=== PATIENT | female | born 1955 | race Two or more races ===

== ENCOUNTER → 2023-01-19 | Day surgery (SDC) | payer OTHER ==
[~2023-01-19] VITALS: Ht 149.9 cm; Wt 81.6 kg
[~2023-01-19] MED LIST: ACCU-CHEK COMFORT CURVE STRIP VI ONE; ALEN70TA74 PO; AMLO1TAB23 PO; ATOR10TA52 PO; CHOL20007 OR; HYDROmorphone HCL 2 MG/ML VL/or syr IV PRN; INSU100I67 SC; ISOS10TA2 PO; LEVO75TA6 PO; LOSA100T58 PO; METF-490 PO; METOCLOPRAMIDE HCL 5MG/ml INJ 2ml VIAL IV PRN; MIDAZOLAM HCL 2MG/2ML 2ml VIAL (1mg/ml) ONE; MORPHINE SULFATE INJ 2 MG/ml SYRG IV PRN; NALOXONE HCL 1MG/ML 2ML SYRINGE ONE; ONDANSETRON HCL 4 MG/2 ML VIAL ONE; PROPOFOL 10 MG/ML 20 ML IV ONE; TOPI50TA53 PO; fentaNYL CITRATE 100 MCG/2 ML VL ONE
[2023-01-19 08:19] VITALS: TEMP 97.7
[2023-01-19 09:51] VITALS: O2SAT 94
[2023-01-19 10:45] VITALS: BP 124/73; PULSE 70; RESP 13; O2SAT 95
== END | disposition home or self-care (01) ==
LOC: GI 07:24
PROVIDERS: ATTEND Internal Medicine Gastroenterology
DX: Z12.11 Encounter for screening for malignant neoplasm of colon (principal); R13.10 Dysphagia, unspecified; K57.30 Diverticulosis of large intestine without perforation or abscess without bleeding; K64.8 Other hemorrhoids; K64.4 Residual hemorrhoidal skin tags; K29.50 Unspecified chronic gastritis without bleeding; E11.9 Type 2 diabetes mellitus without complications
CPT/HCPCS: 43239; 43450; 82962; G0121; J2250; J2310; J2405; J2704; J3010; J7030

== ENCOUNTER 2025-02-03 06:12 | Inpatient (IN) | payer OTHER ==
[2025-02-03] VITALS (9 sets, daily range): BP systolic 124–144; BP diastolic 74–78; PULSE 73–93; RESP 12–18; TEMP 98.1–98.8; O2SAT 96–100
[~2025-02-03] VITALS: Ht 149.9 cm; Wt 79.6 kg
[~2025-02-03 06:12] MED LIST changes: -ACCU-CHEK COMFORT CURVE STRIP VI ONE; +ASPI81CH59 PO; +HYDR-4902 PO; -HYDROmorphone HCL 2 MG/ML VL/or syr IV PRN; +INSLANTI SC; -INSU100I67 SC; +LOSA-535 PO; -LOSA100T58 PO; -METOCLOPRAMIDE HCL 5MG/ml INJ 2ml VIAL IV PRN; -MIDAZOLAM HCL 2MG/2ML 2ml VIAL (1mg/ml) ONE; -MORPHINE SULFATE INJ 2 MG/ml SYRG IV PRN; -NALOXONE HCL 1MG/ML 2ML SYRINGE ONE; -ONDANSETRON HCL 4 MG/2 ML VIAL ONE; -PROPOFOL 10 MG/ML 20 ML IV ONE; +SEMA2INJ3 SC; -fentaNYL CITRATE 100 MCG/2 ML VL ONE
[2025-02-03] MEDS ORDERED: MORPHINE SULF PF 5 MG/10 ML VIAL ONE ×2 (07:00→07:22)
[2025-02-03] MEDS: BUPIVACAINE 0.25% INJ 50ML VIAL ONE ×2 (07:02→10:20)
[2025-02-03] MEDS: DEXTROSE 50% SYRINGE 50 ML IV ONE (07:17)
[2025-02-03] MEDS ORDERED: fentaNYL CITRATE 100 MCG/2 ML VL ONE (07:29)
[2025-02-03] MEDS ORDERED: MIDAZOLAM HCL 2MG/2ML 2ml VIAL (1mg/ml) ONE (07:29)
[2025-02-03] MEDS: DEXTROSE (50%) 50ML SYRG IV PRN (07:30)
[2025-02-03] MEDS ORDERED: NITROGLYCERIN 0.4 MG SL TAB SL PRN (07:30)
[2025-02-03] MEDS ORDERED: MORPHINE SULFATE INJ 2 MG/ml SYRG IV PRN (07:30)
[2025-02-03] MEDS: LACTATED RINGER'S 1,000 ML IV SCH (07:30)
[2025-02-03] MEDS ORDERED: ONDANSETRON HCL 4 MG/2 ML VIAL ONE (07:31)
[2025-02-03] MEDS ORDERED: BUPIVACAINE/DEXTROSE MPF 0.75% 2 ML AMP IT ONE (07:31)
[2025-02-03] MEDS ORDERED: METOCLOPRAMIDE HCL 5MG/ml INJ 2ml VIAL ONE (07:31)
[2025-02-03] MEDS ORDERED: PHENYLEPHRINE HCL 10 MG/ML VL ONE (07:32)
[2025-02-03] MEDS ORDERED: PROPOFOL 10 MG/ML 20 ML IV ONE (07:52)
[2025-02-03] MEDS ORDERED: LIDOCAINE 2% (LOCAL ANESTH.) PF 5ml SDV ONE (07:52)
[2025-02-03] MEDS: KETOROLAC TROMETH 30 MG/ML 1ML VIAL ONE (08:05)
[2025-02-03] MEDS ORDERED: LIDOCAINE W/ EPINEPHRINE 1% 20ML VIAL ONE (08:15)
[2025-02-03] MEDS: VANCOMYCIN HCL 1000 MG VL ONE (08:36)
[2025-02-03] MEDS ORDERED: hydrALAZINE HCL 20 MG/ML VL IV PRN (09:30)
[2025-02-03] MEDS ORDERED: ONDANSETRON HCL 4 MG/2 ML VIAL IV PRN (09:30)
[2025-02-03] MEDS: DOCUSATE SOD 100 MG CAP PO SCH (10:00)
[2025-02-03] MEDS: ceFAZolin 2 GM/D5W50ml 50 ML IV ONE (10:16)
[2025-02-03] MEDS: CEFEPIME 1GM/50ML 50 ML IV ONE (10:19)
[2025-02-03] MEDS: TRANEXAMIC ACID 20 ML ONE (10:19)
[2025-02-03] MEDS: BUPIVACAINE HCL 0 ML ONE (10:19)
--- NOTE | 2025-02-03 10:30 | DVHOP2 ---
Discharge Orders Discharge Orders DISCHARGE WHEN CRITERIA MET DISCHARGE WHEN CRITERIA MET. Operative Rep- Outpatient Operative Report PRE-OP DIAGNOSIS: Left knee DJD PRE-OP PAIN LEVEL (0-10): 9 POST-OP DIAGNOSIS: same [place] protocol followed: Yes ESTIMATED BLOOD LOSS: less then 50 cc PROCEDURE: Left TKA Computer navigation of the TKA SURGEON/BLOCK AND CASE MAKER: Bart Churchill NP ANESTHESIA: SPinal ANESTHESIOLOGIST: Mandeep INFORMED CONSENT: Informed Consent: Discussed all inherent risks, complications, and alternatives treatments with the patient. Patient has agreed to proceed with the procedure. I have reviewed all pre-operative assessments including Labs, EKGs, and radiographic images that has been performed. Patient is an appropriate candidate for the outpatient surgical center procedure. Informed Consent: Discussed all inherent risks, complications, and alternatives treatments with the patient. Patient has agreed to proceed with the procedure. I have reviewed all pre-operative assessments including Labs, EKGs, and radiographic images that has been performed. Patient is an appropriate candidate for the outpatient surgical center procedure. The patient is a 69-year-old female who has ongoing pain in the left knee. The patient is educated on the risks and benefits of surgical and nonsurgical treatment of the left lower extremity the patient understands the risks associated with the left total knee arthroplasty. The patient is a 69-year-old female who has failed conservative measures physical therapy activity modifications bracing and anti-inflammatories based on the failure of all the nonoperative treatments the patient was educated on the risks and benefits of surgical and nonsurgical treatment left lower extremity the patient agrees to have a left total knee arthroplasty the patient understands the risks associated with the left total knee arthroplasty The patient is seen in the preoperative holding area of the left lower extremity was marked the patient was brought to operative suite general anesthesia was then induced and also to hospital protocol the left lower extremity was prepped and draped in the standard fashion Ancef was given for infection prophylaxis TXA was given for bleeding prophylaxis once it was then completed the left lower extremity was then prepped and draped in the standard fashion once I was then done incision was made through skin subcu tissue down the VMO quad junction of the medial parapatellar arthrotomy was then created once I was then completed in the appropriate manner with a medial parapatellar arthrotomy of the small medial release of the deep MCL was then completed once I was then done the fat pad was then carefully removed on the anterior horn of the medial and lateral meniscus once I was then completed attention and strengthening of the computer navigation with a posterior slope of 4 with a medial malleolar lateral malleolus using kit hematocrit mechanical axis using computer navigation and 4 degree slope cut was then completed in the appropriate manner once it was then cut in the appropriate manner attention was then turned to the proximal tibia with a resection 2 mm off the medial side once I was then completed attention was then turned to the distal femur was using flexion extension internal external rotation of the distal femoral cut with a through 3 of flexion and neutral mechanical axis in the appropriate manner. Once I was then completed in the appropriate manner the distal femoral sizing block was then used the 4 1 cutting block was then used once I was then used the tibial base plate was then prepped and along the medial 1/3 of the tibial tubercle was then rotation was then marked of the femoral component was punched and killed in the appropriate manner once I was then done on the 11 mm spacer block was checked in flexion and extension once it was then checked with the I was balanced in flexion extension internal external rotation once I was then completed in the appropriate manner on the tibial base plate was then punched and killed followed by the femoral component which was punched ocular patellar neurectomy was then also completed in the appropriate manner once it was then done on the cement list tibial base plate was then cemented in the placed into position a femoral component was placed in the position of the 11 mm poly was placed in the position of the patellar tracking was then checked that there was a is then on full range of motion with no gross instability once I was then completed on the knee was irrigated copiously with saline and then with Betadine vancomycin powder 2. Five Ethibond 90 of flexion with a 1. Stratafix followed by 0 Vicryl followed by 2-0 Monocryl followed by a bridge dressing. The patient will follow up in approximately 2 weeks' time PT OT out of bed daily follow up in 2 weeks' time BART HUYNH MD Feb 03, 2025 10:30
--- NOTE | 2025-02-03 10:39 | DVH ---
EXAM: XY L KNEE 3V XRAY CLINICAL INDICATION: S/P SURGERY TECHNIQUE: XY L KNEE 3V XRAY Comparison: None FINDINGS/IMPRESSION: Status post left total knee arthroplasty.
[2025-02-03] MEDS: HYDROmorphone HCL 2 MG/ML VL/or syr IV PRN ×2 (11:05→20:38)
[2025-02-03] MEDS: ceFAZolin 1GM/50ML 50 ML IV SCH (11:15)
[2025-02-03] MEDS: ACCU-CHEK COMFORT CURVE STRIP VI SCH (11:30)
[2025-02-03] MEDS: ACETAMINOPHEN IV 1000 MG/100ML (10MG/ML) IV ONE (11:33)
[2025-02-03] MEDS: diphenhdrAMINE HCL 50 MG/1 ML VL IV ONE (12:45)
[2025-02-03] MEDS: SODIUM CHLOR 0.9% PF (SALINE LOCK) 10ML VIAL/SYR IV SCH (14:00)
[2025-02-03] MEDS: InsuLIN REG 1unit/0.01ml Soln (100units/ml) SC SCH ×2 (15:15→21:35)
[2025-02-03] MEDS: HYDROmorphone HCL 2 MG/ML VL/or syr ONE (15:50)
[2025-02-03] MEDS: OXYCODONE W/ ACETAMINOPHEN 5/325MG TABLET PO PRN (17:44)
[2025-02-03] MEDS: ATORVASTATIN 20 MG TAB PO SCH (21:27)
[2025-02-03] MEDS: OXYBUTYNIN CHL 5 MG TAB PO ONE (21:41)
[2025-02-04] VITALS (8 sets, daily range): BP systolic 122–174; BP diastolic 76–102; PULSE 63–83; RESP 17–20; TEMP 97.7–98.2; O2SAT 92–98
[2025-02-04] MEDS: ONDANSETRON HCL 4 MG/2 ML VIAL IV PRN (03:07)
[2025-02-04] MEDS: LEVOTHYROXINE SODIUM 25 MCG TAB PO SCH (06:42)
[2025-02-04 07:13] LABS: Hematocrit 37.1 % (36.0-46.0); Hemoglobin 12.2 g/dL (12.2-16.2); Mean Corpuscular Hemoglobin 27.9 pg (28.0-32.0); Mean Corpuscular Volume 84.7 fL (80.0-100.0); Nucleated Red Blood Cells % 0.0 %
[2025-02-04 07:24] LABS: Albumin 3.8 g/dL (3.2-4.8); Alkaline Phosphatase 77 U/L (46-116); Anion Gap 9 (5-15); BUN/Creatinine Ratio 12.5 (10.0-20.0); Blood Urea Nitrogen 12 mg/dL (9-23); Calcium 9.7 mg/dL (8.7-10.4); Carbon Dioxide 26 mmol/L (20-31); Chloride 105 mmol/L (98-107); Sodium 140 mmol/L (136-145); Total Protein 6.4 g/dL (5.7-8.2)
[2025-02-04 07:25] LABS: Bilirubin, Total 0.6 mg/dL (0.2-1.0)
[2025-02-04 07:27] LABS: Alanine Aminotransferase < 9 U/L (7-40); Glucose 151 mg/dL (74-106); Potassium 5.5 mmol/L (3.5-5.1)
[2025-02-04] MEDS: ACETAMINOPHEN 325 MG TAB PO PRN (11:50)
[2025-02-04 14:05] LABS: Hematocrit 38.7 % (36.0-46.0); Hemoglobin 12.9 g/dL (12.2-16.2)
[2025-02-04] MEDS: FAMOTIDINE (10MG/ML) 2ML VL IV SCH (20:55)
[2025-02-05 01:00] VITALS: BP 158/83; PULSE 75; RESP 18; TEMP 98.2; O2SAT 97
[2025-02-05 05:00] VITALS: BP 162/84; PULSE 77; RESP 18; TEMP 98.2; O2SAT 98
[2025-02-05 06:28] LABS: Hematocrit 38.4 % (36.0-46.0); Hemoglobin 12.9 g/dL (12.2-16.2)
[2025-02-05 08:00] VITALS: PULSE 81
--- NOTE | 2025-02-05 08:09 | DVHDS2 ---
Discharge Summary Date of Admission Feb 03, 2025 at 07:20 Date of Discharge: Feb 05, 2025 Admitting Diagnosis left knee osteoarthritis Wounds: left knee dressing to remain in place until first postop visit Labs/Diagnostic Data: Laboratory Results Test 02/05/25 06:39 02/05/25 05:16 02/04/25 05:39 POC Glucose 128 mg/dl (70-106) Hemoglobin 12.9 g/dL (12.2-16.2) Hematocrit 38.4 % (36.0-46.0) White Blood Count 12.0 10^3/uL (4.4-10.8) Red Blood Count 4.39 10^6/uL (4.0-5.20) Mean Corpuscular Volume 84.7 fL (80.0-100.0) Mean Corpuscular Hemoglobin 27.9 pg (28.0-32.0) Mean Corpuscular Hemoglobin Concent 32.9 g/dL (32.0-36.0) Red Cell Distribution Width 14.2 % (11.8-14.3) Platelet Count 290 10^3/uL (140-450) Mean Platelet Volume 9.5 fL (6.9-10.8) Neutrophils (%) (Auto) 76.5 % (37.0-80.0) Lymphocytes (%) (Auto) 14.0 % (10.0-50.0) Monocytes (%) (Auto) 9.0 % (0.0-12.0) Eosinophils (%) (Auto) 0.2 % (0.0-7.0) Basophils (%) (Auto) 0.3 % (0.0-2.0) Neutrophils # (Auto) 9.1 10 ^3/uL (1.6-8.6) Lymphocytes # (Auto) 1.7 10 ^3/uL (0.4-5.4) Monocytes # (Auto) 1.1 10 ^3/uL (0-1.3) Eosinophils # (Auto) 0 10 ^3/uL (0-0.8) Basophils # (Auto) 0 10 ^3/uL (0-0.2) Nucleated Red Blood Cells 0.0 % Sodium Level 140 mmol/L (136-145) Potassium Level 5.5 mmol/L (3.5-5.1) Chloride Level 105 mmol/L (98-107) Carbon Dioxide Level 26 mmol/L (20-31) Anion Gap 9 (5-15) Blood Urea Nitrogen 12 mg/dL (9-23) Creatinine 0.96 mg/dL (0.550-1.02) Glomerular Filtration Rate Calc 64 mL/min (>90) BUN/Creatinine Ratio 12.5 (10.0-20.0) Serum Glucose 151 mg/dL (74-106) Calcium Level 9.7 mg/dL (8.7-10.4) Total Bilirubin 0.6 mg/dL (0.2-1.0) Aspartate Amino Transferase (AST) 14 U/L (13-40) Alanine Aminotransferase (ALT) < 9 U/L (7-40) Alkaline Phosphatase 77 U/L (46-116) Total Protein 6.4 g/dL (5.7-8.2) Albumin 3.8 g/dL (3.2-4.8) Other Laboratory Tests 02/05/25 05:16 02/04/25 05:39 Brief Hx & Hospital Course: s/p left total knee arthroplasty Condition at Discharge: Good Final Diagnosis/Problems List left knee osteoarthritis Discharge Disposition[facility] Discharge Instruct/Medications Diet comment: may advance diet tolerated Activity: No Restrictions, As Tolerated Activity comment: continue with CPM as ordered for 6 hours a day, increase flexion by 5 degrees daily. Follow Up/Referral: follow up in 2 weeks on 02/19/2025 at 9:30 Medications: prescriptins for percocet, aspirin sent to preferred pharmacy for use after SNF discharge Scheduled Alendronate Sodium (Alendronate Sodium), Unknown Dose PO Q7D, (Reported) Amlodipine Besylate (Amlodipine Besylate), 10 MG PO DAILY, (Reported) Aspirin (Aspirin Low Dose), 1 TAB PO DAILY, (Reported) Atorvastatin Calcium (Atorvastatin Calcium), 10 MG PO DAILY, (Reported) Isosorbide Dinitrate (Isosorbide Dinitrate), Unknown Dose PO DAILY, (Reported) Levothyroxine Sodium (Levothyroxine Sodium), 75 MCG PO DAILY, (Reported) Losartan Potassium (Losartan Potassium), Unknown Dose PO DAILY, (Reported) Miscellaneous Medications Cholecalciferol (Vitamin D3), Unknown Dose OR, (Reported) Hydrocodone-Acetaminophen (Hydrocodone Bitartrate/AC 5-325 mg), 1 TAB PO, (Reported) Insulin Glargine (Lantus), 72 UNIT SC, (Reported) Metformin Hydrochloride (Metformin Hcl Er), 1,000 MG PO, (Reported) Semaglutide (Ozempic), 2 MG SC, (Reported) Topiramate (Topiramate), Unknown Dose PO, (Reported) Discharge Statement: "Patient was advised to return to the ER or call 911 if any headaches, dizziness, shortness of breath, chest pain, abdominal pain, bleeding, fevers, or worsening of medical condition. Patient was counseled about treatment plan, medications, possible side effects, patientverbalized understanding. All questions were answered to the best of my ability. This discharge took greater then 30 minutes in planning, reviewing documentation, counseling the patient, and discussing with other team members." ASSESSMENT ASSESSMENT Assessment MILES ROMO NP Feb 05, 2025 08:09
[2025-02-05 09:00] VITALS: BP 154/85; PULSE 79; RESP 20; TEMP 100.2; O2SAT 97
--- NOTE | 2025-02-05 09:17 | DVHINCON2 ---
Date of service: Feb 04, 2025 Reason for Consultation Medical Management History of Present Illness Patient presents for hip replacement. I have been asked to consult for medical management. Family History: Cardiovascular disease G8 MOTHER G8 FATHER Allergies: Coded Allergies: Ciprofloxacin (Unverified Allergy, Intermediate, rash, pruritus, 01/18/23) Hydrocodone (Unverified Allergy, Intermediate, rash, pruritus, 01/18/23) Morphine (Unverified Allergy, Intermediate, rash, pruritus, 01/18/23) Home Meds Reported Medications Semaglutide (Ozempic) 2 Mg/3 Ml Inj, 2 MG SC, INJ 01/31/25 Hydrocodone-Acetaminophen (Hydrocodone Bitartrate/AC 5-325 mg) 1 Tab Tab, 1 TAB PO, TAB 01/31/25 Insulin Glargine (Lantus) 100 Unit/Ml Inj, 72 UNIT SC, INJ 01/31/25 Aspirin (Aspirin Low Dose) 81 Mg Chw, 1 TAB PO DAILY, #90 TAB 3 Refills 01/31/25 Alendronate Sodium (Alendronate Sodium) Unknown Strength Tab, PO Q7D, TAB 01/18/23 Cholecalciferol (VITAMIN D3) Unknown Strength Tab, OR, TAB 01/18/23 Topiramate (Topiramate) Unknown Strength Tab, PO, TAB 01/18/23 Isosorbide Dinitrate (Isosorbide Dinitrate) Unknown Strength Tab, PO DAILY, TAB 01/18/23 Losartan Potassium (Losartan Potassium) Unknown Strength Tab, PO DAILY, TAB 01/18/23 Levothyroxine Sodium (Levothyroxine Sodium) 75 Mcg Tab, 75 MCG PO DAILY, TAB 01/18/23 Amlodipine Besylate (Amlodipine Besylate) 10 Mg Tab, 10 MG PO DAILY, TAB 01/18/23 Atorvastatin Calcium (ATORVASTATIN CALCIUM) 10 Mg Tab, 10 MG PO DAILY, TAB 01/18/23 Metformin Hydrochloride (METFORMIN HCL ER) 1,000 Mg Tab, 1000 MG PO, TAB 01/18/23 Current Medications Current Medications Medications (Trade) Dose Ordered Sig/Frida Route PRN Reason Start Time Stop Time Status Last Admin Amlodipine Besylate (Norvasc Tablet) 10 mg DAILY PO 02/04/25 10:55 02/05/25 08:58 Famotidine (Pepcid Injection) 20 mg Q12HR IV 02/04/25 22:00 02/05/25 08:58 Review of Systems WNL Vital Signs Vital Signs Date Time Temp Pulse Resp B/P (MAP) Pulse Ox O2 Delivery O2 Flow Rate FiO2 02/05/25 08:59 79 20 154/85 02/05/25 05:00 98.2 98 98.2 02/04/25 20:00 Nasal Cannula* 2 28 Physical Exam General appearance: No acute distress Respiratory: Lungs clear to auscultation. No wheezing, crackles Cardiovascular: Regular rate and rhythm, no murmurs. No edema Abdomen: Soft, nondistended, nontender, bowel sounds present MSK: Appropriate muscle bulk Neuro: Alert, no neurological deficits Psych: Appropriate mood and affect. Labs/Diagnostic Data Labs Test 02/05/25 06:39 02/05/25 05:16 02/04/25 05:39 Range/Units POC Glucose 128 H 70-106 mg/dl Hemoglobin 12.9 12.2-16.2 g/dL Hematocrit 38.4 36.0-46.0 % White Blood Count 12.0 H 4.4-10.8 10^3/uL Red Blood Count 4.39 4.0-5.20 10^6/uL Mean Corpuscular Volume 84.7 80.0-100.0 fL Mean Corpuscular Hemoglobin 27.9 L 28.0-32.0 pg Mean Corpuscular Hemoglobin Concent 32.9 32.0-36.0 g/dL Red Cell Distribution Width 14.2 11.8-14.3 % Platelet Count 290 140-450 10^3/uL Mean Platelet Volume 9.5 6.9-10.8 fL Neutrophils (%) (Auto) 76.5 37.0-80.0 % Lymphocytes (%) (Auto) 14.0 10.0-50.0 % Monocytes (%) (Auto) 9.0 0.0-12.0 % Eosinophils (%) (Auto) 0.2 0.0-7.0 % Basophils (%) (Auto) 0.3 0.0-2.0 % Neutrophils # (Auto) 9.1 H 1.6-8.6 10 ^3/uL Lymphocytes # (Auto) 1.7 0.4-5.4 10 ^3/uL Monocytes # (Auto) 1.1 0-1.3 10 ^3/uL Eosinophils # (Auto) 0 0-0.8 10 ^3/uL Basophils # (Auto) 0 0-0.2 10 ^3/uL Nucleated Red Blood Cells 0.0 % Sodium Level 140 136-145 mmol/L Potassium Level 5.5 H 3.5-5.1 mmol/L Chloride Level 105 98-107 mmol/L Carbon Dioxide Level 26 20-31 mmol/L Anion Gap 9 5-15 Blood Urea Nitrogen 12 9-23 mg/dL Creatinine 0.96 0.550-1.02 mg/dL Glomerular Filtration Rate Calc 64 >90 mL/min BUN/Creatinine Ratio 12.5 10.0-20.0 Serum Glucose 151 H 74-106 mg/dL Calcium Level 9.7 8.7-10.4 mg/dL Total Bilirubin 0.6 0.2-1.0 mg/dL Aspartate Amino Transferase (AST) 14 13-40 U/L Alanine Aminotransferase (ALT) < 9 7-40 U/L Alkaline Phosphatase 77 46-116 U/L Total Protein 6.4 5.7-8.2 g/dL Albumin 3.8 3.2-4.8 g/dL Assessment 1. Left Knee Total Replacement 2. Type 2 Diabetes 3. Hypertension -Continue sliding scale insulin while in hospital. Glucose control 140-180. -Metformin on discharge -Continue levothyroxine and antihypertensives -Stable for discharge Plan discussed with: Patient TONIA BOURGEOIS Feb 05, 2025 09:17
[2025-02-05 12:45] VITALS: BP 139/84; PULSE 77; RESP 20; TEMP 98.1; O2SAT 98
[2025-02-05 12:50] LABS: Chloride 105 mmol/L (98-107); Potassium 4.6 mmol/L (3.5-5.1); Sodium 139 mmol/L (136-145)
[2025-02-05 12:51] LABS: Anion Gap 7 (5-15); Calcium 9.9 mg/dL (8.7-10.4); Carbon Dioxide 27 mmol/L (20-31)
[2025-02-05 12:56] LABS: BUN/Creatinine Ratio 11.6 (10.0-20.0); Blood Urea Nitrogen 11 mg/dL (9-23)
[2025-02-05 13:00] VITALS: BP 139/84; PULSE 77; RESP 20
[2025-02-05 13:02] LABS: Glucose 136 mg/dL (74-106)
== END 2025-02-05 15:45 | DRG 470 ==
LOC: SUR 06:12 → OVERFLOW 07:20 → TELE-CENTR 15:11
PROVIDERS: ADMIT Orthopaedic Surgery Adult Reconstructive Orthopaedic Surgery; ATTEND Orthopaedic Surgery Adult Reconstructive Orthopaedic Surgery
PROC: 8E0YXBZ Computer Assisted Procedure of Lower Extremity (ICD-10-PCS; 2025-02-03)
PROC: 0SRD0J9 Replacement of Left Knee Joint with Synthetic Substitute, Cemented, Open Approach (ICD-10-PCS; principal; 2025-02-03 07:32)
DX: M17.12 Unilateral primary osteoarthritis, left knee (principal); I10 Essential (primary) hypertension; E11.9 Type 2 diabetes mellitus without complications; Z82.49 Family history of ischemic heart disease and other diseases of the circulatory system; Z88.2 Allergy status to sulfonamides; Z88.5 Allergy status to narcotic agent; Z88.8 Allergy status to other drugs, medicaments and biological substances; Z79.4 Long term (current) use of insulin; Z79.82 Long term (current) use of aspirin; Z79.84 Long term (current) use of oral hypoglycemic drugs; Z79.899 Other long term (current) drug therapy
CPT/HCPCS: 36415; 73562; 80048; 80053; 82962; 85014; 85018; 85025; 86850; 86900; 86901; 97116; 97163; 97530; C1713; G0378; J0131; J1815; J1885; J2003; J2250; J2405; J2704; J3490